=== PATIENT | male | born 1980 | race Caucasian/White ===

== ENCOUNTER 2016-11-07 19:12 | Emergency (ER) | payer OTHER ==
[~2016-11-07] VITALS: Ht 182.9 cm; Wt 100.0 kg
[2016-11-07] MEDS ORDERED: ULTRAM50 MG PO (20:59)
[2016-11-07] MEDS ORDERED: MOTRIN800 MG PO (20:59)
[2016-11-07 21:47] VITALS: BP 143/73
== END 2016-11-07 21:49 | disposition home or self-care (01) ==
LOC: EXP 19:12 → EME 19:12 → EXP 21:49
DX: S93.402A Sprain of unspecified ligament of left ankle, initial encounter (principal); X50.1XXA Overexertion from prolonged static or awkward postures, initial encounter; F17.200 Nicotine dependence, unspecified, uncomplicated
CPT/HCPCS: 73610; 99281; 99283